=== PATIENT | female | born 1980 | race Caucasian/White ===

== ENCOUNTER 2017-04-23 12:15 | Emergency (ER) | payer OTHER ==
[2017-04-23 12:22] VITALS: TEMP 97.3; BMI 25.1
[2017-04-23] MEDS ORDERED: ACETAMINOPHEN 325 MG TABLET (FP) PO ONE (14:03)
[2017-04-23 14:43] LABS: HCG,QUALITATIVE URINE NEGATIVE; URINE APPEARANCE CLEAR; URINE BILIRUBIN NEGATIVE (NEGATIVE); URINE BLOOD NEGATIVE (NEGATIVE); URINE COLOR STRAW; URINE GLUCOSE (UA) NEGATIVE (NEGATIVE); URINE KETONE NEGATIVE (NEGATIVE); URINE LEUK ESTERASE NEGATIVE (NEGATIVE); URINE NITRITE NEGATIVE (NEGATIVE); URINE PROTEIN NEGATIVE (NEGATIVE); URINE UROBILINOGEN NEGATIVE mg/dL (0.2-1.0)
[2017-04-23] MEDS ORDERED: ACETAMINOPHEN 325 MG TABLET (FP) ONE (14:50)
[2017-04-23 16:16] VITALS: BP 108/71; PULSE 66
--- NOTE | 2017-04-23 16:45 | PDOC ---
History of Present Illness - General Chief Complaint: Pain Stated Complaint: OVARIAN CYST Time Seen by Provider: 04/23/17 13:39 History Source: Patient Exam Limitations: No Limitations - History of Present Illness Travel History: No Initial Comments: 04/23/17 15:37 37-year-old female presents to the ED with complaints of worsening left suprapubic pain for the past 2 days causing her difficulty with ADLs. Patient states did not take anything for the pain and came to the ER since she has history of ovarian cyst and is worried about torsion. Patient states has been seen by multiple HEAT SEAL OPERATOR specialist who recommended oral contraceptives which patient could not tolerate. Patient denies history of PCO as but does state history of hemorrhagic cyst without removal.Patient denies fever, chills, nausea , irregular menses, dysuria, or vaginal discharge. Timing/Duration: reports: getting worse Quality: reports: moderate, cramping, sharpness Abdominal Pain Onset Location: reports: suprapubic Aggravating Factors: improves with: Movement Alleviating Factors: improves with: None Past History - Travel Traveled outside of the country in the last 30 days: No - Past Medical History Allergies/Adverse Reactions: Allergies Allergy/AdvReac Type Severity Reaction Status Date / Time morphine Allergy Verified 04/23/17 12:19 neomycin sulfate Allergy Rash Verified 04/23/17 12:19 [From Neosporin ([id number])] polymyxin B Allergy Rash Verified 04/23/17 12:19 [From Neosporin ([id number])] Home Medications: Ambulatory Orders Fluoxetine HCl [Prozac -] 20 mg PO DAILY 03/20/13 Sumatriptan Succinate [Imitrex] 100 mg PO PRN PRN 03/20/13 Alprazolam [Xanax] 0.25 mg PO PRN 04/23/17 COPD: No Disorders: Yes (ovarian cyst) Psychiatric Problems: Yes (ANXIETY) Other medical history: MIGRAINES - Surgical History Cholecystectomy: Yes - Reproductive History LMP Normal: Yes Is Patient Now?: No Polycystic Ovaries: Yes - Immunization History Immunization Up to Date: Yes - Suicide/Smoking/Psychosocial Hx Smoking History: Never smoked Have you smoked in the past 12 months: Yes Number of Cigarettes Smoked Daily: 20 Information on smoking cessation initiated: Yes 'Breaking Loose' booklet given: 04/23/17 Hx Alcohol Use: No Drug/Substance Use Hx: No Substance Use Type: None Patient Lives Alone: No Lives with/in: parents Review of Systems - Review of Systems Able to Perform ROS?: No Constitutional: No: Symptoms Reported Respiratory: No: Symptoms reported Cardiac (ROS): No: Symptoms Reported ABD/GI: Yes: Abdominal cramping : No: Symptoms Reported Musculoskeletal: No: Symptoms Reported Integumentary: No: Symptoms Reported Neurological: No: Symptoms reported Endocrine: No: Symptoms Reported Hematologic/Lymphatic: No: Symptoms Reported *Physical Exam - Vital Signs Last Vital Signs Temp Pulse Resp BP Pulse Ox 97.3 F L 66 18 108/71 97 04/23/17 12:19 04/23/17 16:15 04/23/17 12:19 04/23/17 16:15 04/23/17 16:15 - Physical Exam General Appearance: Yes: Nourished, Appropriately Dressed. No: Apparent Distress HEENT: negative: Pale Conjunctivae Neck: positive: Normal Thyroid, Supple Respiratory/Chest: positive: Lungs Clear, Normal Breath Sounds. negative: Respiratory Distress, Accessory Muscle Use Cardiovascular: positive: Regular Rhythm, Regular Rate. negative: Murmur Female Pelvic Exam: positive: cervical os closed, adnexal tenderness (left). negative: CMT, discharge, vaginal bleeding Gastrointestinal/Abdominal: positive: Normal Bowel Sounds, Soft, Tenderness ( left suprapubic) Integumentary: positive: Normal Color, Warm, Moist Neurologic: positive: Motor Strength 5/5 (ambulatory) ED Treatment Course - ADDITIONAL ORDERS Additional order review: Laboratory Results 04/23/17 14:20 Urine Color Straw Urine Appearance Clear Urine pH 7.0 Ur Specific [place] 1.004 Urine Protein Negative Urine Glucose (UA) Negative Urine Ketones Negative Urine Blood Negative Urine Nitrite Negative Urine Bilirubin Negative Urine Urobilinogen Negative Ur Leukocyte Esterase Negative Urine HCG, Qual Negative - RADIOLOGY Radiology Studies Ordered: Category Date Time Status PELVIC / BLADDER US [US] Stat Ultrasound 04/23/17 15:20 Ordered TRANSVAGINAL ULTRASOUND US [US] Stat Ultrasound 04/23/17 15:20 Ordered - Medications Given in the ED: ED Medications Discontinued Medications Generic Name Dose Route Start Last Admin Trade Name Freq PRN Reason Stop Dose Admin Acetaminophen 650 mg 04/23/17 14:03 04/23/17 14:52 Tylenol - PO 04/23/17 14:04 650 mg ONCE ONE Administration Oxycodone/Acetaminophen 1 combo 04/23/17 14:03 04/23/17 14:52 Percocet 5/325 - PO 04/23/17 14:04 1 combo ONCE ONE Administration Medical Decision Making - Medical Decision Making 04/23/17 15:46 Patient with left adnexal discomfort and has history of recurrent frequent hemorrhagic cyst. Patient on exam did have tenderness to the left adnexal region without discharge. Patient had a urinalysis urine Tylenol, 1 Percocet and ultrasound 04/23/17 16:47 Laboratory Tests 04/23/17 14:20 Urine Ketones Negative Urine Nitrite Negative Ur Leukocyte Esterase Negative Urine HCG, Qual Negative 04/23/17 17:10 Ultrasound shows mildly enlarged bilateral ovaries with no evidence of ovarian torsion at this time. Intermittent torsion-D torsion cannot be excluded radiologist. Requiring clinical correlation. Bilateral complex ovarian lesions as described above are presumably hemorrhagic cyst. A follow-up pelvic ultrasound was recommended in 6 weeks for reevaluation of these lesions. Patient states feeling better after receiving the Percocet but after the ultrasound her pain is returning. Patient ordered for 1 more Percocet will be discharged home with the same along with follow-up with her HEAT SEAL OPERATOR and copies of today's ultrasound. *DC/Admit/Observation/Transfer Diagnosis at time of Disposition: Hemorrhagic cyst - Discharge Dispostion Disposition: HOME Condition at time of disposition: Improved - Referrals Referrals: Sarah Ch MD [Primary Care Provider] - - Patient Instructions Printed Discharge Instructions: DI for Hemorrhagic Cystitis Additional Instructions: At this time I do recommend follow up with the HEAT SEAL OPERATOR to discuss today's visit and bring copy of ultrasound report with you. You may take Motrin or Percocet as needed for discomfort. May also apply heating pad to the affected area. - Post Discharge Activity
== END 2017-04-23 17:31 | disposition home or self-care (01) ==
LOC: JER 12:15
DX: N83.202 Unspecified ovarian cyst, left side (principal)
CPT/HCPCS: 76830-TC; 76856-TC; 81003; 84703; 99282-25

== ENCOUNTER 2018-01-07 09:15 | Emergency (ER) | payer OTHER ==
[2018-01-07 09:25] VITALS: TEMP 97.9; BMI 25.1
[2018-01-07 10:42] LABS: HCG,QUALITATIVE URINE Negative
[2018-01-07 10:52] LABS: URINE APPEARANCE CLEAR; URINE BILIRUBIN NEGATIVE (<2.0 mg/dL); URINE COLOR LTYELLOW; URINE GLUCOSE (UA) NEGATIVE (NEGATIVE); URINE KETONE NEGATIVE (NEGATIVE); URINE LEUK ESTERASE NEGATIVE (NEGATIVE); URINE NITRITE NEGATIVE (NEGATIVE); URINE PROTEIN NEGATIVE (NEGATIVE); URINE UROBILINOGEN NEGATIVE mg/dL (0.2-1.0)
[2018-01-07 10:54] LABS: EPI CELLS RARE /HPF (FEW); URINE BACTERIA MODERATE /hpf (NONE SEEN)
[2018-01-07] MEDS ORDERED: ACETAMINOPHEN 325 MG TABLET (FP) PO ONE (11:31)
[2018-01-07] MEDS ORDERED: ACETAMINOPHEN 325 MG TABLET (FP) ONE (11:35)
--- NOTE | 2018-01-07 12:34 | PDOC ---
History of Present Illness - General Chief Complaint: Injury Stated Complaint: FALL,INJURY HEAD/LT HAND Time Seen by Provider: 01/07/18 09:54 History Source: Patient Exam Limitations: No Limitations - History of Present Illness Initial Comments: 01/07/18 13:57 37-year-old female presents to emergency room with complaints of headache, neck pain, and upper extremity pain. Patient states last night was going to lock the front door when she had tripped causing her to fall down a set of stairs. Patient states that a brief moment of LOC without nausea, visual changes, weakness. Patient currently on no anticoagulation therapy and denies chest pain , shortness of breath or abdominal pain. Occurred: reports: yesterday Severity: reports: moderate Pain Location: reports: head, neck, upper extremity Method of Injury: Yes: fall Loss of Consciousness: brief (seconds) Associated Symptoms (Fall): headache Past History - Travel Traveled outside of the country in the last 30 days: No - Past Medical History Allergies/Adverse Reactions: Allergies Allergy/AdvReac Type Severity Reaction Status Date / Time morphine Allergy Verified 01/07/18 09:22 neomycin sulfate Allergy Rash Verified 01/07/18 09:22 [From Neosporin ([id number])] polymyxin B Allergy Rash Verified 01/07/18 09:22 [From Neosporin ([id number])] Home Medications: Ambulatory Orders Fluoxetine HCl [Prozac -] 20 mg PO DAILY 03/20/13 Sumatriptan Succinate [Imitrex] 100 mg PO PRN PRN 03/20/13 Alprazolam [Xanax] 0.25 mg PO PRN 04/23/17 Oxycodone HCl/Acetaminophen [Percocet 5-325 mg Tablet] 1 - 2 tab PO Q6H PRN #12 tab MDD 4 04/23/17 COPD: No Disorders: Yes (ovarian cyst) Psychiatric Problems: Yes (ANXIETY) Other medical history: migraines - Surgical History Cholecystectomy: Yes - Reproductive History Polycystic Ovaries: Yes - Immunization History Immunization Up to Date: Yes - Suicide/Smoking/Psychosocial Hx Smoking History: Current every day smoker Have you smoked in the past 12 months: Yes Number of Cigarettes Smoked Daily: 20 Information on smoking cessation initiated: No 'Breaking Loose' booklet given: 04/23/17 Hx Alcohol Use: No Drug/Substance Use Hx: No Substance Use Type: None Patient Lives Alone: No Lives with/in: spouse/SO Trauma Specific PMHX - Complaint Specific PMHX Back Injury: No Neck Injury: No Review of Systems - Review of Systems Able to Perform ROS?: Yes Constitutional: No: Symptoms Reported HEENTM: No: Symptoms Reported Respiratory: No: Symptoms reported Cardiac (ROS): No: Symptoms Reported ABD/GI: No: Symptoms Reported : No: Symptoms Reported Musculoskeletal: Yes: Joint Pain (left wrist and right fingers), Neck Pain Integumentary: Yes: Lumps (right occipital) Neurological: Yes: Headache (generalized) Endocrine: No: Symptoms Reported Hematologic/Lymphatic: No: Symptoms Reported *Physical Exam - Vital Signs Last Vital Signs Temp Pulse Resp BP Pulse Ox 97.9 F 78 18 139/84 100 01/07/18 09:22 01/07/18 09:22 01/07/18 09:22 01/07/18 09:22 01/07/18 09:22 - Physical Exam General Appearance: Yes: Nourished, Appropriately Dressed. No: Apparent Distress HEENT: positive: EOMI, SUZETTE, TMs Normal, Pharynx Normal. negative: Pale Conjunctivae Neck: positive: Supple, Tender midline (C5-C6). negative: Decreased range of motion Respiratory/Chest: positive: Lungs Clear, Normal Breath Sounds. negative: Chest Tender, Respiratory Distress, Accessory Muscle Use Cardiovascular: positive: Regular Rhythm, Regular Rate. negative: Murmur Gastrointestinal/Abdominal: positive: Soft. negative: Tenderness Extremity: positive: Normal Capillary Refill, Normal Range of Motion, Tender ( left wrist and mid forearm). negative: Normal Inspection (ecchymotic edematous right third and fourth fingers), Pedal Edema Integumentary: positive: Normal Color, Warm, Swelling (rt occipital 3 cm hematoma) Neurologic: positive: Normal Mood/Affect (groggy ( on psych meds)), Motor Strength 5/5 (ambulatory) ED Treatment Course - ADDITIONAL ORDERS Additional order review: Laboratory Results 01/07/18 10:25 Urine Color Ltyellow Urine Appearance Clear Urine pH 8.0 Ur Specific [place] 1.005 L Urine Protein Negative Urine Glucose (UA) Negative Urine Ketones Negative Urine Blood 1+ H Urine Nitrite Negative Urine Bilirubin Negative Urine Urobilinogen Negative Ur Leukocyte Esterase Negative Urine WBC (Auto) <1 Urine RBC (Auto) 1 Ur Epithelial Cells Rare Urine Bacteria Moderate Urine HCG, Qual Negative - RADIOLOGY Radiology Studies Ordered: Category Date Time Status CERVICAL SPINE CT W/O CONTR [CT] Stat CT Scan 01/07/18 11:[address] WITHOUT CONTRAST [CT] Stat CT Scan 01/07/18 11:29 Ordered FINGER(S) RIGHT [RAD] Stat Radiology 01/07/18 11:29 Ordered FOREARM- LEFT [RAD] Stat Radiology 01/07/18 11:29 Ordered WRIST-LEFT [RAD] Stat Radiology 01/07/18 11:29 Ordered - Medications Given in the ED: ED Medications Discontinued Medications Generic Name Dose Route Start Last Admin Trade Name Freq PRN Reason Stop Dose Admin Acetaminophen 650 mg 01/07/18 11:31 01/07/18 11:39 Tylenol - PO 01/07/18 11:32 650 mg ONCE ONE Administration Oxycodone/Acetaminophen 1 combo 01/07/18 11:30 01/07/18 11:39 Percocet 5/325 - PO 01/07/18 11:31 1 combo ONCE ONE Administration Medical Decision Making - Medical Decision Making 01/07/18 13:53 Status post fall downstairs complaining of pain to the head, neck right and left arm. Patient otherwise stable requesting Percocet for pain. Patient ordered for CT and x-rays of the upper extremities. 01/07/18 14:53 Patient with normal x-rays with no acute findings. Head and cervical CT negative for acute findings. Patient be discharged home with recommendations to take Motrin or Tylenol for pain and apply ice to the affected areas. *DC/Admit/Observation/Transfer Diagnosis at time of Disposition: Contusion, Fall - Discharge Dispostion Disposition: HOME Condition at time of disposition: Improved - Referrals Referrals: Sarah Ch MD [Primary Care Provider] - - Patient Instructions Printed Discharge Instructions: DI for Contusion Additional Instructions: At this time I recommend applying ice to the affected areas as much as you can tolerate for the next 72 hours and may take Motrin or Tylenol for pain. - Post Discharge Activity
[2018-01-07 15:09] VITALS: BP 116/78; PULSE 74
== END 2018-01-07 15:09 | disposition home or self-care (01) ==
LOC: JERFT 09:15 → JER 09:15
DX: S06.9X1A Unspecified intracranial injury with loss of consciousness of 30 minutes or less, initial encounter (principal); S00.03XA Contusion of scalp, initial encounter; S60.212A Contusion of left wrist, initial encounter; S60.221A Contusion of right hand, initial encounter; M54.6 Pain in thoracic spine; M54.2 Cervicalgia; W10.8XXA Fall (on) (from) other stairs and steps, initial encounter; Y93.89 Activity, other specified; Y92.018 Other place in single-family (private) house as the place of occurrence of the external cause; F41.9 Anxiety disorder, unspecified; G43.909 Migraine, unspecified, not intractable, without status migrainosus; F17.210 Nicotine dependence, cigarettes, uncomplicated
CPT/HCPCS: 70450-TC; 72125-TC; 73090-TC-LT-FY; 73110-TC-LR-FY; 73140-TC-RT-FY; 81003; 81015; 84703; 99282-25

== ENCOUNTER 2019-10-16 10:47 | Emergency (ER) | payer OTHER ==
[2019-10-16 11:03] VITALS: BMI 23.6
--- NOTE | 2019-10-16 11:58 | PDOC ---
History of Present Illness - General Chief Complaint: Irregular Heart Beat Stated Complaint: PALPITATIOS Time Seen by Provider: 10/16/19 11:11 History Source: Patient Exam Limitations: No Limitations Past History - Medical History Allergies/Adverse Reactions: Allergies Allergy/AdvReac Type Severity Reaction Status Date / Time morphine Allergy Verified 01/07/18 09:22 neomycin sulfate Allergy Rash Verified 01/07/18 09:22 [From Neosporin ([id number])] polymyxin B Allergy Rash Verified 01/07/18 09:22 [From Neosporin ([id number])] Home Medications: Ambulatory Orders Fluoxetine HCl [Prozac -] 20 mg PO DAILY 03/20/13 Sumatriptan Succinate [Imitrex] 100 mg PO PRN PRN 03/20/13 Alprazolam [Xanax] 0.25 mg PO PRN 04/23/17 Oxycodone HCl/Acetaminophen [Percocet 5-325 mg Tablet] 1 - 2 tab PO Q6H PRN #12 tab MDD 4 04/23/17 COPD: No Disorders: Yes (ovarian cyst) Psychiatric Problems: Yes (ANXIETY) - Surgical History Cholecystectomy: Yes - Reproductive History Is Patient Now?: No Polycystic Ovaries: Yes - Immunization History Immunization Up to Date: Yes - Psycho-Social/Smoking History Smoking History: Current every day smoker Have you smoked in the past 12 months: Yes Number of Cigarettes Smoked Daily: 20 Information on smoking cessation initiated: Yes 'Breaking Loose' booklet given: 04/23/17 - Substance Abuse Hx (Audit-C & DAST Scrn) How often the patient has a drink containing alcohol: Never Score: In Men: 4 or > Positive; In Women: 3 or > Positive: 0 Screen Result (Pos requires Nsg. Audit-10AR): Negative In the last yr the pt used illegal drug/Rx for NonMed reason: No Score: Yes response is considered Positive: 0 Screen Result (Positive result requires Nsg. DAST-10): Negative *Physical Exam - Vital Signs Last Vital Signs Temp Pulse Resp BP Pulse Ox 98.8 F 98 H 20 114/68 98 10/16/19 10:59 10/16/19 10:59 10/16/19 10:59 10/16/19 10:59 10/16/19 10:59 Discharge - Follow up/Referral Referrals: Sarah Ch MD [Primary Care Provider] - - Patient Discharge Instructions - Post Discharge Activity
--- NOTE | 2019-10-16 12:44 | PDOC ---
Attending Attestation - Resident Resident Name: Julia Julian - ED Attending Attestation I have performed the following: I have examined & evaluated the patient, The case was reviewed & discussed with the resident, I agree w/resident's findings & plan, Exceptions are as noted - HPI HPI: 10/16/19 13:03 39y F hx of anxiety, migraine headache presents with complaint of intermittent palpitations since yesterday. Patient states that she was at rest watching TV yesterday felt a brief episode of palpitations, lightheadedness, chest pressure, tingling in the extremities lasting approximately 15 to 20 minutes before resolving. Today she woke up again with palpitations however did not have any sensation of chest pressure, She went to urgent care care to get evaluated she was noted to have an irregular heartbeat and sent to the ER for evaluation. Patient denies any further chest pain she does endorse occasionally feeling palpitations and feeling lightheaded when she looks down although she denies any room spinning dizziness or sensation of movement, focal numbness, tingling, weakness, vision changes, Fever, chills, chest pain, dyspnea on exertion, hemoptysis, leg swelling. Patient states that she has been feeling malaise for a long time and is currently following up with her primary care doctor and an supervisor home energy consultant for further work-up. social: chronic smoker (pack / day since 16), denies recreational drug use, etoh abuse. - Physicial Exam PE: 10/16/19 13:42 GENERAL: The patient is awake, alert, and fully oriented, Nontoxic - in no acute distress. HEAD: Normocephalic, atraumatic. EYES: extraocular movements intact, sclera anicteric, conjunctiva clear. ENT: Normal voice, Moist mucous membranes. NECK: Normal range of motion, supple LUNGS: Breath sounds equal, clear to auscultation bilaterally. No wheezes, no rhonchi, no rales. HEART: Regular rate and rhythm, normal S1 and S2 without murmur, rub or gallop. ABDOMEN: Soft, nontender, No guarding, no rebound. No CVA tenderness EXTREMITIES: Normal range of motion, no edema. NEUROLOGICAL: No facial assymetry, Normal speech, movinga ll 4 extyremiteis spontaneouslyt and symmetrically, sensation intact throughout PSYCH: Normal mood, normal affect. SKIN: Warm, Dry, normal turgor, - Medical Decision Making 10/16/19 13:46 39y F presents with intermittent palpitations and a resolved episode of chest pressure last night. currently feeling malaise, and occaionally lightheaded. will ck labs to ro anemia, metabolid derangement will refer to cardiology if w/o negative 10/16/19 16:07 pts labs reviewed will dc with cards fu suspect her sx may be related to pvcs, perhaps with a touch of anxiety return precutions wre discussed Heart Score/ECG Review - ECG Impressions Comment:: 10/16/19 13:45 Twelve-lead EKG was performed and reviewed by me. There is normal sinus rhythm with a normal rate. rate of 62 Occasional PVC present The axis is normal. The intervals are normal. There is normal R wave progression There are no ST or T wave abnormalities. Impression: Normal EKG with occasional PVC Discharge - Discharge Information Problems reviewed: Yes Clinical Impression/Diagnosis: Palpitations Condition: Stable Disposition: HOME - Follow up/Referral Referrals: Adama Zavaleta MD [Staff Physician] - Sarah Ch MD [Primary Care Provider] - - Patient Discharge Instructions Patient Printed Discharge Instructions: DI for Palpitations Additional Instructions: You came into the ER palpitations, chest pain, lightheadedness. In the ED, you were evaluated with blood work, EKG, chest xray, urinalysis. Your bloodwork (blood counts, electrolytes, Magnesium, Thyroid) were normal. Your chest xray was normal. Your urinalysis results were normal (no infection). You do not appear to be an acute need for immediate hospitalization. You were advised to follow up with your primary care doctor within 1 week. You were given a referral to a equipment processer storage. Call today to schedule an appointment. Bring the copy of the EKG to your cardiology appointment. Come back to the ER immediately with any new or worsening concerns. Thank you for coming to the [facility] ER. We hope you feel better soon! - Post Discharge Activity
--- NOTE | 2019-10-16 13:01 | PDOC ---
History of Present Illness - General Chief Complaint: Irregular Heart Beat Stated Complaint: PALPITATIOS Time Seen by Provider: 10/16/19 11:11 - History of Present Illness Initial Comments: Pt is a 39yo F with PMH anxiety, migraine headaches who presents with palpitations. Last night, had a 10-15min episode of chest pain (dull, non radiating, pleuritic, a/w diaphoresis, located at left midclavicular chest), b/l hand and feet paresthesias, lightheadedness, R eye blurry vision, and "low BP and elevated temperature". States that symptoms self-resolved without any medication; states that she felt improved after drinking water. This morning at 8am, she felt palpitations and lightheadedness and went to urgent care where she was told her EKG was normal, but that the provider heard "skipped beats". Afterwards, at about 10am, she reports onset of chest tightness that was pleuritic, 3/10, non radiating, a/w tunnel vision, lightheadedness, and b/l hand paresthesias. States in the past month has started taking effexor and high dose Vitamin D. She currently only reports palpitations. Denies FHx of [place], reports FHx thyroid problems. PCP: Dima PMH: see above PSHx: septoplasty, cholecystectomy Meds: Zofran, Effexor, Xanax, Vit D, Rizatriptan All: morphine, NSAIDs Social: drinks 5-7cups of coffee/day Review of Systems CONSTITUTIONAL:reports subjective fever, chills, diaphoresis, generalized weakness, malaise HEENT:reports chronic rhinorrhea, nasal congestion, sore throat; reports blurry vision CARDIOVASCULAR:reports chest pain, palpitations, lightheadedness; denies peripheral edema RESPIRATORY:reports cough, shortness of breath; denies wheezing, hemoptysis GASTROINTESTINAL: reports chronic nausea; denies abdominal pain, vomiting, diarrhea, constipation, melena, hematochezia GENITOURINARY:denies dysuria, frequency, urgency, hematuria, flank pain MUSCULOSKELETAL:reports chronic neck pain HEMATOLOGIC/IMMUNOLOGIC:reports easy bruising, denies easy bleeding ENDOCRINE: denies unexplained weight gain, unexplained weight loss NEUROLOGIC:reports headache, focal weakness or paresthesias, denies unsteady gait, seizure, mental status changes, bladder or bowel incontinence SKIN:denies rash, itching, pallor PSYCHIATRIC:reports anxiety Physical Exam General: awake, alert, fully oriented, in no acute distress, well developed, well nourished Head: normocephalic, atraumatic Eyes: PERRL, EOMI, anicteric sclera, conjunctiva clear ENT: hearing grossly normal, nares patent, oropharynx clear without exudates. No nasal congestion Moist mucous membranes Neck: supple, normal ROM, no LAD, JVD or masses Lung: equal breath sounds b/l, CTA b/l, no crackles, wheezes; no distress, speaks full sentences Heart: irregular rate, normal S1, S2, no murmurs, rubs, gallops Abdomen: soft, non tender, normoactive bowel sounds, no guarding, rebound, masses Extremities: normal ROM, no edema, no erythema or tenderness, DP/PT pulses 2+ and symmetric, no clubbing, cyanosis Neuro: CN2-12 grossly intact, moves all extremities, normal speech, normal gait, sensation intact, -pronator drift Skin: warm, dry, no rashes or lesions noted 10/16/19 13:32 Past History - Medical History Allergies/Adverse Reactions: Allergies Allergy/AdvReac Type Severity Reaction Status Date / Time morphine Allergy Verified 01/07/18 09:22 neomycin sulfate Allergy Rash Verified 01/07/18 09:22 [From Neosporin ([id number])] polymyxin B Allergy Rash Verified 01/07/18 09:22 [From Neosporin ([id number])] Home Medications: Ambulatory Orders Fluoxetine HCl [Prozac -] 20 mg PO DAILY 03/20/13 Sumatriptan Succinate [Imitrex] 100 mg PO PRN PRN 03/20/13 Alprazolam [Xanax] 0.25 mg PO PRN 04/23/17 Oxycodone HCl/Acetaminophen [Percocet 5-325 mg Tablet] 1 - 2 tab PO Q6H PRN #12 tab MDD 4 04/23/17 COPD: No Disorders: Yes (ovarian cyst) Psychiatric Problems: Yes (ANXIETY) - Surgical History Cholecystectomy: Yes - Reproductive History Is Patient Now?: No Polycystic Ovaries: Yes - Immunization History Immunization Up to Date: Yes - Psycho-Social/Smoking History Smoking History: Current every day smoker Have you smoked in the past 12 months: Yes Number of Cigarettes Smoked Daily: 20 Information on smoking cessation initiated: Yes 'Breaking Loose' booklet given: 04/23/17 - Substance Abuse Hx (Audit-C & DAST Scrn) How often the patient has a drink containing alcohol: Never Score: In Men: 4 or > Positive; In Women: 3 or > Positive: 0 Screen Result (Pos requires Nsg. Audit-10AR): Negative In the last yr the pt used illegal drug/Rx for NonMed reason: No Score: Yes response is considered Positive: 0 Screen Result (Positive result requires Nsg. DAST-10): Negative *Physical Exam - Vital Signs Last Vital Signs Temp Pulse Resp BP Pulse Ox 98.8 F 98 H 20 114/68 98 10/16/19 10:59 10/16/19 10:59 10/16/19 10:59 10/16/19 10:59 10/16/19 10:59 Heart Score/ECG Review - History History: Slightly suspicious - Electrocardiogram EKG: Normal - Age Age: </= 45 - Risk Factors Based on the list above the patient has:: No risk factors known ED Treatment Course - LABORATORY CBC & Chemistry Diagram: 10/16/19 12:00 10/16/19 12:00 Medical Decision Making - Medical Decision Making Pt is 39yo F with PMH anxiety, migraine headaches who presents with palpitations, chest pain, and lightheadedness x2 days. Vital Signs Temp Pulse Resp BP Pulse Ox 98.8 F 98 H 20 114/68 98 10/16/19 10:59 10/16/19 10:59 10/16/19 10:59 10/16/19 10:59 10/16/19 10:59 DDx: medication adverse effect/interaction, arrhythmia, thyroid dysfunction, ACS, PE Plan: labs, EKG, CXR, pain control, IV fluids PERC - ruled out PE (<50 yo, HR <100, sat >95%, no leg swelling, no hemoptysis, no recent trauma/surgery, no history of PE/DVT, no hormone use) EKG: HR 62bpm, sinus rhythm with sinus arrhythmia with occasional PVCs, NM 144ms, QRS 80ms, QTc 401ms 10/16/19 13:29 Labs: no leukocytosis, no anemia 10/16/19 14:06 Labs: electrolytes WNL, no MARIUSZ, Mg WNL, TSH WNL, troponin WNL Laboratory Tests 10/16/19 10/16/19 10/16/19 12:00 12:00 12:00 WBC 7.6 RBC 4.39 Hgb 13.6 Hct 40.7 MCV 92.7 MCH 31.1 MCHC 33.5 RDW 13.4 Plt Count 246 MPV 8.4 Absolute Neuts (auto) 4.2 Neutrophils % 54.6 Lymphocytes % 35.6 Monocytes % 5.8 Eosinophils % 3.1 Basophils % 0.9 Nucleated RBC % 0 Sodium 141 Potassium 3.9 Chloride 108 H Carbon Dioxide 29 Anion Gap 4 L BUN 6.1 L Creatinine 0.6 Est GFR (CKD-EPI)AfAm 132.14 Est GFR (CKD-EPI)NonAf 114.01 Random Glucose 78 Calcium 9.0 Magnesium 2.3 Total Bilirubin 0.5 AST 12 L ALT 19 Alkaline Phosphatase 42 L Creatine Kinase 143 Troponin I < 0.02 Total Protein 6.7 Albumin 3.8 TSH 1.37 Serum , Qual Negative 10/16/19 15:54 Pt states that she feels better; denies palpitations, headache, lightheadedness CXR no acute pathology Patient stable for discharge. Symptoms controlled. Informed of all lab and imaging results. Given follow up instructions and strict return precautions. Told to follow up with prescribing physician regarding Effexor usage. Given referral to Cardiology. Patient expressed understanding and agree to plan Disposition Discharge to home Discharge - Discharge Information Problems reviewed: Yes Clinical Impression/Diagnosis: Palpitations Condition: Stable Disposition: HOME - Admission No - Follow up/Referral Referrals: Sarah Ch MD [Primary Care Provider] - Adama Zavaleta MD [Staff Physician] - - Patient Discharge Instructions Patient Printed Discharge Instructions: DI for Palpitations Additional Instructions: You came into the ER palpitations, chest pain, lightheadedness. In the ED, you were evaluated with blood work, EKG, chest xray, urinalysis. Your bloodwork (blood counts, electrolytes, Magnesium, Thyroid) were normal. Your chest xray was normal. Your urinalysis results were normal (no infection). You do not appear to be an acute need for immediate hospitalization. You were advised to follow up with your primary care doctor within 1 week. You were given a referral to a material expediter. Call today to schedule an appointment. Bring the copy of the EKG to your cardiology appointment. Come back to the ER immediately with any new or worsening concerns. Thank you for coming to the [facility] ER. We hope you feel better soon! - Post Discharge Activity
[2019-10-16] MEDS ORDERED: ACETAMINOPHEN 1000 MG/100 ML VIAL (NON FORMULARY) IVPB ONE (13:02)
[2019-10-16] MEDS ORDERED: LACTATED RINGERS SOLUTION 1000 ML INFUS.BAG IV ONE (13:04)
[2019-10-16] MEDS ORDERED: ACETAMINOPHEN 500 MG TABLET (FP) PO ONE (13:08)
[2019-10-16 13:22] LABS: BASO % 0.9 % (0-2.0); EOS % 3.1 % (0-4.5); HEMATOCRIT 40.7 % (32.4-45.2); HEMOGLOBIN 13.6 GM/dL (10.7-15.3); LYMPH % 35.6 % (8-40); MCH 31.1 pg (25.7-33.7); MCHC 33.5 g/dl (32.0-36.0); MEAN CELL VOLUME 92.7 fl (80-96); MEAN PLT VOLUME 8.4 fl (7.5-11.1); MONO % 5.8 % (3.8-10.2); NEUT % 54.6 % (42.8-82.8); PLATELET COUNT 246 K/MM3 (134-434); RBC 4.39 M/mm3 (3.60-5.2); RDW 13.4 % (11.6-15.6); WHITE BLOOD COUNT 7.6 K/mm3 (4.0-10.0)
[2019-10-16] MEDS ORDERED: ACETAMINOPHEN 325 MG TABLET (FP) ONE (13:41)
[2019-10-16 13:44] LABS: ALBUMIN 3.8 g/dl (3.4-5.0); ALK PHOS 42 U/L (45-117); ANION GAP 4 MMOL/L (8-16); BILIRUBIN,TOTAL 0.5 mg/dL (0.2-1); BLOOD UREA NITROGEN 6.1 mg/dL (7-18); CHLORIDE 108 mmol/L (98-107); CO2 29 mmol/L (21-32); CREATININE 0.6 mg/dL (0.55-1.3); GLUCOSE,RANDOM 78 mg/dL (74-106); MAGNESIUM 2.3 mg/dL (1.8-2.4); POTASSIUM 3.9 mmol/L (3.5-5.1); SGOT/AST 12 U/L (15-37); SGPT/ALT 19 U/L (13-61); SODIUM 141 mmol/L (136-145); TOT PROT 6.7 g/dl (6.4-8.2)
[2019-10-16 16:22] LABS: PH,URINE >= 9.0 (5.0-8.0); URINE APPEARANCE CLEAR; URINE BILIRUBIN NEGATIVE (NEGATIVE); URINE COLOR YELLOW; URINE GLUCOSE (UA) NEGATIVE (NEGATIVE); URINE KETONE NEGATIVE (NEGATIVE); URINE LEUK ESTERASE NEGATIVE (NEGATIVE); URINE NITRITE NEGATIVE (NEGATIVE); URINE PROTEIN NEGATIVE (NEGATIVE); URINE UROBILINOGEN 0.2 mg/dL (0.2-1.0)
[2019-10-16 17:03] VITALS: BP 120/65; PULSE 67; TEMP 98.1
--- NOTE | 2019-10-17 13:24 | EKG ---
Test Reason : Blood Pressure : / mmHG Vent. Rate : 062 BPM Atrial Rate : 062 BPM P-R Int : 144 ms QRS Dur : 080 ms QT Int : 396 ms P-R-T Axes : 037 076 075 degrees QTc Int : 401 ms SINUS RHYTHM WITH SINUS ARRHYTHMIA WITH OCCASIONAL PREMATURE VENTRICULAR COMPLEXES OTHERWISE NORMAL ECG NO PREVIOUS ECGS AVAILABLE Confirmed by Lucrecia Pena ([id number]) on 10/17/2019 1:24:08 PM Referred By: Confirmed By:Lucrecia Pena
== END 2019-10-16 17:00 | disposition home or self-care (01) ==
LOC: SUPCPDRO 10:47 → JER 10:47
PROC: 3E033NZ Introduction of Analgesics, Hypnotics, Sedatives into Peripheral Vein, Percutaneous Approach (ICD-10-PCS; principal; 2019-10-16)
DX: R00.2 Palpitations (principal)
CPT/HCPCS: 36415; 71046-TC-FY; 80053; 81003; 82550; 83735; 84443; 84484; 84703; 85025; 87086; 93005; 93010; 99285-25